=== PATIENT | male | born 1975 | race Hispanic/Latino ===

== ENCOUNTER → 2024-03-12 | Outpatient (CLI) | payer OTHER ==
--- NOTE | 2024-03-12 15:57 | HMCIMG ---
CT CORONARY CALCIFICATION SCORING: Anatomic images were reviewed. The calcium score is being generated and reported separately. This report is for the visualized anatomy only. Visualized portions of the lungs are clear. Hilar and mediastinal structures appear normal. Osseous structures are unremarkable. Impression: 1. Negative noncardiac anatomic findings. 2. The calcium score is 0 consistent with absence of calcified plaque. CT was performed with one or more following dose reduction techniques: automated exposure control, adjustment of the mA and kv according to patient's size, or use of a iterative reconstruction technique.
== END | disposition home or self-care (01) ==
LOC: RAH 14:19
PROVIDERS: ATTEND Family Medicine
DX: Z13.6 Encounter for screening for cardiovascular disorders (principal)
CPT/HCPCS: 75571